=== PATIENT | female | born 1960 | race Caucasian/White ===

== ENCOUNTER 2017-09-15 11:09 | Inpatient (IN) | payer OTHER ==
[2017-09-15] VITALS (28 sets, daily range): BP systolic 52–125; BP diastolic 20–112
[~2017-09-15] VITALS: Ht 160 cm; Wt 167.8 kg
--- NOTE | ~2017-09-15 | HC ---
[facility] [place] [address] CONSULTATION Name: GRETEL GUNNOSWALD Banerjee Room #: 210-P [facility] IN M.R.#: [id number] Admission: 09/15/17 Attend Phys: Simone Martin MD Discharge: Date of : 60 Report #: [id number] THIS REPORT FOR: //name// CC: FAM unknown Simone Martin DATE OF SERVICE: 09/18/2017 PERSONAL PHYSICIAN: Not on staff. CHIEF COMPLAINT: Right leg hematoma, status post evacuation. HISTORY OF PRESENT ILLNESS: This is a 57-year-old morbidly obese white female who resides in a long-term care facility in [place] who states that the nursing staff was attempting to transfer her, she fell and suffered a traumatic hematoma to her right lower extremity. The patient was initially evaluated in the Emergency Department in [facility] and was found to be hypotensive and was transferred to [facility] for further care. The patient was subsequently taken to the operating room after receiving FFP and IV fluids for volume resuscitation. Dr. Harris evacuated the hematoma in the operating room and did a wound closure. We have been asked to follow the patient for the wound while she is still here in the hospital. The patient states that she has a history of chronic lymphedema in her lower extremities and has been followed closely by the lymphedema nurses at her facility as well as she has seen a orthopedic cast specialist at [facility]. The patient denies any other associated wounds at this time. The patient states her left leg is wrapped with lymphedema wrap, which is changed usually once weekly. The patient states that she normally has wraps on her right leg as well prior to the fall. The patient denies any associated traumatic injuries to her body. PAST MEDICAL HISTORY: Significant for CHF, history of COPD, chronic back pain, chronic lower extremity lymphedema, Graves disease with goiter, hypothyroidism. CURRENT MEDICATIONS: Multiple, reviewed the patient's medication list. DRUG ALLERGIES: PENICILLIN. SOCIAL HISTORY: The patient resides in a long-term care facility. The patient smokes 1/2 pack of cigarettes daily for the past 40 years. The patient drinks alcohol socially. FAMILY HISTORY: Not pertinent to current medical condition. REVIEW OF SYSTEMS: CONSTITUTIONAL: The patient denies fevers or chills. NEUROLOGIC: The patient states she was very lightheaded with the acute blood [facility] [address] [place] [address] CONSULTATION Name: MO GUNN Room #: 210-P [facility] IN .R.#: [id number] Admission: 09/15/17 Attend Phys: Simone Martin MD Discharge: Date of : 60 Report #: [id number] loss, but denies any headache, numbness, tingling or weakness in arms or legs. The patient has complaints of mild generalized weakness. EYES: No complaints. ENT: No complaints. CARDIAC: The patient has chronic lower extremity edema consistent with lymphedema, but no chest pain or palpitation. RESPIRATORY: The patient has no shortness of breath, cough or wheezes. GASTROINTESTINAL: The patient denies nausea, vomiting, abdominal pain. GENITOURINARY: The patient denies urgency or frequency. MUSCULOSKELETAL: The patient has pain in her right lower extremity. No other signs of musculoskeletal complaints. SKIN: There is a minimal residual hematoma in the right lower extremity with ranjeet intact and subcutaneous serous fluid. PHYSICAL EXAMINATION: VITAL SIGNS: The patient is afebrile, pulse 83, respiration 14, BP 94/52. GENERAL: This is an alert and oriented x 3 morbidly obese white female who is in no obvious distress, actually eating her lunch. HEENT: Normocephalic, atraumatic. Mucous membranes are moist. Pupils are round. Sclerae are white. NECK: Supple and obese, appears nontender. LUNGS: Clear. HEART: Regular. ABDOMEN: Obese, soft, otherwise nontender. EXTREMITIES: The patient moves all extremities with some decreased range of motion in the bilateral lower extremities secondary to lymphedema. Left lower extremity is wrapped with lymphedema wrap. Distal pulses, sensation and cap refill are all within normal limits. Evaluation of right lower extremity reveals the surgical wound post-evacuation of the hematoma with residual serous fluid in the subcutaneous region. Wound edges are, however, well approximated. The skin itself is very fragile, but there are no actual open wounds at this time. There are no signs of increased erythema, warmth or cellulitis. Distal neurovascular is otherwise intact. NEUROLOGIC: Cranial nerves 2-12 are grossly intact. Motor and sensory intact. LABORATORY DATA: Hemoglobin 6.5, this is down from 7.3 yesterday. BUN 6, creatinine 0.7. Albumin mildly low at 3.3. WOUND CARE COURSE: I spoke at length with the patient and stated at this time given the fact that the wound is actually closed with ranjeet, we will leave these all intact for now. However, my concern is that eventually this friable fragile skin is going to open up and reveal a subcutaneously exposed wound. However, we will continue to watch this very closely while she is here. I will contact the orthopedic cast specialist, Alex House, down at [place] and let him know how we have been treating that, which will be with Xeroform dressings over the entire hematoma site and cover this with ABDs and Kerlix and Myles wrap from [address] [place] [address] CONSULTATION Name: MO GUNN Room #: 210-P [facility] IN M.R.#: [id number] Admission: 09/15/17 Attend Phys: Simone Martin MD Discharge: Date of : 60 Report #: [id number] to knee. We will continue to follow the patient while she is here. The patient has been followed closely by the Internal Medicine group for her anemia. We will also make sure we encourage the patient to maximize her oral protein supplementation for mild protein calorie malnutrition. IMPRESSION: 1. Hematoma, right lower extremity, status post evacuation and primary closure. 2. Severe blood loss anemia. 3. Morbid obesity. 4. Chronic lymphedema, bilateral lower extremities. 5. Protein-calorie malnutrition, mild with albumin 3.3. PLAN: Described at length as above. We will continue to follow the patient while she is here and the plan is to have the patient get back to her long-term care facility in [place] with a orthopedic cast specialist to follow down there. By: 1335 13 Antony Watson MD /nt
--- NOTE | ~2017-09-15 | O ---
[facility] [place] [address] OPERATIVE REPORT Name: MO GUNN Room #: 242-P [facility] IN M.R.#: [id number] Admission: 09/15/17 Attend Phys: Siomne Martin MD Discharge: Date of : 60 Report #: [id number] THIS REPORT FOR: //name// CC: FAM unknown Simone Martin DATE OF SERVICE: 09/16/2017 PREOPERATIVE DIAGNOSIS: Right leg hematoma with skin tear. POSTOPERATIVE DIAGNOSIS: Right leg hematoma with skin tear. PROCEDURE: Right leg hematoma evacuation with irrigation and debridement and wound closure. SURGEON: Yinka Harris MD SECURITY INSTALLATION SALES TECHNICIAN: Brenda Rivera. ANESTHESIA: General. ESTIMATED BLOOD LOSS: 10 mL. DRAINS: No drains. TOURNIQUET TIME: 30 minutes. COMPLICATIONS: There were no complications. DESCRIPTION OF THE PROCEDURE: The patient was brought to the operating room where she was placed under general anesthesia. Once under adequate general anesthesia, her right lower extremity was prepped and draped in a sterile manner. The extremity was elevated and a tourniquet placed to 300 mmHg. The patient's wound was then exposed and any hematoma was evacuated from the wound manually with my fingers as well as with suction. Pulsatile lavage was then placed on low setting and irrigation of the wound was achieved with copious amounts of normal saline solution. Once completed, the wound was closed with 2-0 nylon suture and ranjeet for the skin. The wound was dressed with Xeroform, 4 x 4s, and sterile soft compressive dressing was placed. Tourniquet was let down at approximately 30 minutes. Toes were pink and warm with good capillary refill. There were no complications from the procedure. The patient tolerated the procedure well and was taken to the recovery room without incident. By: [id number] Yinka Harris MD /nt
[2017-09-15 12:42] LABS: PROTIME 20.7 Seconds (9.3-11.4)
[2017-09-15 12:42] LABS: ABSOLUTE NEUTROPHILS 11.2 thou/uL (1.4-8.2); BASOPHILS 0.4 % (0.0-2.0); EOSINOPHILS 1.3 % (0.0-3.0); HEMOGLOBIN 9.3 gm/dL (12.0-15.0); LYMPHOCYTES 12.9 % (24.0-44.0); MCH 31.2 pg (26.0-34.0); MCHC 33.3 g/dL (28.0-37.0); MCV 93.7 fL (80.0-100.0); PLATELET COUNT 271 thou/uL (150-400); POLYS 75.4 % (36.0-66.0); RBC 2.99 mil/uL (4.20-5.00); RDW 15.6 % (10.5-14.5); WBC 14.9 thou/uL (4.0-11.0)
[2017-09-15 14:50] LABS: HEMOGLOBIN 8.8 gm/dL (12.0-15.0); MCH 31.5 pg (26.0-34.0); MCHC 33.6 g/dL (28.0-37.0); MCV 93.7 fL (80.0-100.0); RBC 2.78 mil/uL (4.20-5.00); WBC 10.9 thou/uL (4.0-11.0)
[2017-09-15 21:22] LABS: MCH 31.1 pg (26.0-34.0); MCHC 34.6 g/dL (28.0-37.0); MCV 89.8 fL (80.0-100.0); RBC 2.89 mil/uL (4.20-5.00); RDW 16.1 % (10.5-14.5); WBC 8.1 thou/uL (4.0-11.0)
[2017-09-15 21:53] LABS: INR 1.2
[2017-09-16 02:16] VITALS: BP 82/41
[2017-09-16] MEDS ORDERED: LIPITOR 20 MG T20 M1 PO ×2 (02:40→02:49)
[2017-09-16] MEDS ORDERED: WELLBUTRIN SR100 MG PO (02:51)
[2017-09-16] MEDS ORDERED: COREG6.25 MG PO (02:52)
[2017-09-16] MEDS ORDERED: CARVEDILOL3.125 MG PO (02:54)
[2017-09-16] MEDS ORDERED: CELEXA10 MG PO (02:55)
[2017-09-16] MEDS ORDERED: CELEXA20 MG PO (02:57)
[2017-09-16] MEDS ORDERED: CLONAZEPAM 1 MG1 M1 PO (02:57)
[2017-09-16] MEDS ORDERED: PEPCID20 MG PO (02:58)
[2017-09-16] MEDS ORDERED: IRON325 PO (02:59)
[2017-09-16] MEDS ORDERED: LASIX 40 MG TAB40 M2 PO (03:00)
[2017-09-16] MEDS ORDERED: GABAPENTIN 100100 MG PO (03:01)
[2017-09-16] MEDS ORDERED: HALOPERIDOL 1 MG1 MG PO (03:01)
[2017-09-16] MEDS ORDERED: LEVSIN0.125 MG PO (03:03)
[2017-09-16] MEDS ORDERED: KEPPRA750 MG PO (03:04)
[2017-09-16] MEDS ORDERED: SYNTHROID175 MCG PO (03:05)
[2017-09-16] MEDS ORDERED: MELATONIN5 M1 PO (03:06)
[2017-09-16] MEDS ORDERED: MIRALAX17 GM PO (03:08)
[2017-09-16] MEDS ORDERED: CENTRUM SILVER1 EAC4 PO (03:09)
[2017-09-16] MEDS ORDERED: PROTONIX40 M1 PO (03:09)
[2017-09-16] MEDS ORDERED: POTASSIUM20 PO (03:10)
[2017-09-16] MEDS ORDERED: SENEXON-S TABL1 EACH PO (03:11)
[2017-09-16 05:31] LABS: ABSOLUTE NEUTROPHILS 4.8 thou/uL (1.4-8.2); BASOPHILS 0.5 % (0.0-2.0); EOSINOPHILS 1.9 % (0.0-3.0); HEMATOCRIT 22.2 % (37.0-47.0); HEMOGLOBIN 7.7 gm/dL (12.0-15.0); LYMPHOCYTES 23.5 % (24.0-44.0); MCH 31.2 pg (26.0-34.0); MCHC 34.6 g/dL (28.0-37.0); MCV 90.2 fL (80.0-100.0); PLATELET COUNT 155 thou/uL (150-400); POLYS 62.1 % (36.0-66.0); RBC 2.46 mil/uL (4.20-5.00); RDW 16.2 % (10.5-14.5); WBC 7.8 thou/uL (4.0-11.0)
[2017-09-16 12:18] LABS: HEMATOCRIT 20.9 % (37.0-47.0); HEMOGLOBIN 7.2 gm/dL (12.0-15.0); MCH 31.3 pg (26.0-34.0); MCHC 34.6 g/dL (28.0-37.0); MCV 90.6 fL (80.0-100.0); RBC 2.31 mil/uL (4.20-5.00); RDW 16.1 % (10.5-14.5); WBC 8.7 thou/uL (4.0-11.0)
[2017-09-16 14:23] VITALS: BP 99/38
[2017-09-16 17:57] LABS: HEMOGLOBIN 7.1 gm/dL (12.0-15.0)
[2017-09-16 18:05] LABS: CALCIUM 7.9 mg/dL (8.5-10.1); CREATININE 0.7 mg/dL (0.6-1.0); POTASSIUM 3.5 mmol/L (3.5-5.1)
[2017-09-16 19:55] LABS: URINE BILIRUBIN NEGATIVE (Negative); URINE BLOOD 1+ (Negative); URINE CLARITY CLEAR; URINE COLOR YELLOW; URINE GLUCOSE-RANDOM* NEGATIVE (Negative); URINE KETONES NEGATIVE (Negative); URINE PROTEIN (DIPSTICK) NEGATIVE (Negative); URINE UROBILINOGEN 0.2 E.U./dl (0.2-1.0)
[2017-09-16 19:56] LABS: URINE LEUKOCYTES-REFLEX 3+ (Negative); URINE NITRITE-REFLEX POSITIVE (Negative)
[2017-09-16 20:08] LABS: CASTS None Seen /LPF (None Seen); CRYSTALS None Seen /LPF (None Seen); MUCUS 4-6 Moderate strn/LPF (None Seen); SQUAMOUS 4-10 Moderate /LPF (0-3); URINE WBC-REFLEX >25 Many /HPF (0-5)
[2017-09-16 20:15] VITALS: BP 84/21; BP 98/44
[2017-09-16 23:35] LABS: HEMATOCRIT 21.5 % (37.0-47.0); HEMOGLOBIN 7.4 gm/dL (12.0-15.0)
[2017-09-17] VITALS (19 sets, daily range): BP systolic 86–126; BP diastolic 41–51
[2017-09-17 04:12] LABS: ABSOLUTE NEUTROPHILS 6.8 thou/uL (1.4-8.2); BASOPHILS 0.4 % (0.0-2.0); EOSINOPHILS 0.5 % (0.0-3.0); HEMATOCRIT 20.8 % (37.0-47.0); HEMOGLOBIN 7.3 gm/dL (12.0-15.0); LYMPHOCYTES 13.2 % (24.0-44.0); MCH 31.3 pg (26.0-34.0); MCHC 34.9 g/dL (28.0-37.0); MCV 89.6 fL (80.0-100.0); MONOCYTES 11.2 % (1.0-8.0); PLATELET COUNT 155 thou/uL (150-400); POLYS 74.7 % (36.0-66.0); RBC 2.32 mil/uL (4.20-5.00); RDW 16.1 % (10.5-14.5); WBC 9.2 thou/uL (4.0-11.0)
[2017-09-17 04:20] LABS: CALCIUM 8.5 mg/dL (8.5-10.1); CREATININE 0.7 mg/dL (0.6-1.0); MAGNESIUM 2.1 mg/dL (1.8-2.4); POTASSIUM 3.1 mmol/L (3.5-5.1)
[2017-09-18] VITALS (21 sets, daily range): BP systolic 83–111; BP diastolic 39–63
[2017-09-18 06:05] LABS: HEMOGLOBIN 6.5 gm/dL (12.0-15.0)
[2017-09-19 04:46] VITALS: BP 117/49
[2017-09-19 04:59] LABS: HEMATOCRIT 22.8 % (37.0-47.0); HEMOGLOBIN 7.5 gm/dL (12.0-15.0)
[2017-09-19 08:00] VITALS: BP 102/39
[2017-09-19 11:00] VITALS: BP 103/55
[2017-09-19 16:00] VITALS: BP 110/66
[2017-09-19 19:55] VITALS: BP 122/52
[2017-09-20 04:36] VITALS: BP 116/42
[2017-09-20 06:10] LABS: HEMATOCRIT 22.5 % (37.0-47.0); HEMOGLOBIN 7.6 gm/dL (12.0-15.0); MCH 31.7 pg (26.0-34.0); MCHC 33.8 g/dL (28.0-37.0); MCV 93.8 fL (80.0-100.0); RBC 2.4 mil/uL (4.20-5.00); RDW 15.5 % (10.5-14.5); WBC 6.4 thou/uL (4.0-11.0)
[2017-09-20 06:25] LABS: ANION GAP < 0 mmol/L (7-16); BUN 5 mg/dL (7-18); CALCIUM 8.6 mg/dL (8.5-10.1); CHLORIDE 106 mmol/L (98-107); CO2 35 mmol/L (21-32); CREATININE 0.8 mg/dL (0.6-1.0); GLUCOSE 107 mg/dL (74-106); SODIUM 140 mmol/L (136-145)
[2017-09-20 09:04] VITALS: BP 99/45
[2017-09-20 09:28] LABS: PROTIME 9.6 Seconds (9.3-11.4)
[2017-09-20 12:37] VITALS: BP 99/42
[2017-09-20 16:07] VITALS: BP 104/51
[2017-09-20 19:45] VITALS: BP 117/45
[2017-09-21 04:25] VITALS: BP 116/44
[2017-09-21 05:27] LABS: PROTIME 9.7 Seconds (9.3-11.4)
[2017-09-21 05:29] LABS: HEMATOCRIT 23.3 % (37.0-47.0); HEMOGLOBIN 7.9 gm/dL (12.0-15.0); MCH 31.7 pg (26.0-34.0); MCHC 33.9 g/dL (28.0-37.0); MCV 93.4 fL (80.0-100.0); RBC 2.49 mil/uL (4.20-5.00); RDW 15.9 % (10.5-14.5); WBC 8.4 thou/uL (4.0-11.0)
[2017-09-21 05:30] LABS: SGOT 13 U/L (15-37); SGPT 13 U/L (30-65)
[2017-09-21 06:09] LABS: CALCIUM 8.6 mg/dL (8.5-10.1); CREATININE 0.7 mg/dL (0.6-1.0); MAGNESIUM 1.9 mg/dL (1.8-2.4); POTASSIUM 4.2 mmol/L (3.5-5.1)
[2017-09-21 07:33] VITALS: BP 106/48
[2017-09-21 12:08] VITALS: BP 107/52
[2017-09-21 15:52] VITALS: BP 107/58
[2017-09-21 20:09] VITALS: BP 110/58
[2017-09-22 03:46] LABS: PROTIME 10.2 Seconds (9.3-11.4)
[2017-09-22 03:55] LABS: CALCIUM 8.6 mg/dL (8.5-10.1); CREATININE 0.7 mg/dL (0.6-1.0); MAGNESIUM 1.9 mg/dL (1.8-2.4)
[2017-09-22 04:06] LABS: HEMATOCRIT 24.4 % (37.0-47.0); HEMOGLOBIN 7.9 gm/dL (12.0-15.0); MCHC 32.6 g/dL (28.0-37.0); MCV 95.2 fL (80.0-100.0); RBC 2.56 mil/uL (4.20-5.00); RDW 16.1 % (10.5-14.5); WBC 8.3 thou/uL (4.0-11.0)
[2017-09-22 05:13] VITALS: BP 123/60
[2017-09-22 07:38] VITALS: BP 115/60
[2017-09-22 11:42] VITALS: BP 114/53
[2017-09-22] MEDS ORDERED: ADVAIR 250-501 EACH INH ×2 (12:40→13:37)
[2017-09-22] MEDS ORDERED: COUMADIN 3 MG TA3 M1 PO ×2 (12:41→13:53)
[2017-09-22] MEDS ORDERED: MORPHINE SULFAT60 M1 PO (12:51)
[2017-09-22] MEDS ORDERED: ROXICODONE5 MG PO (13:15)
[2017-09-22] MEDS ORDERED: SPIRIVA18 MCG INH (13:16)
[2017-09-22] MEDS ORDERED: IRON325 PO (13:53)
[2017-09-22 16:01] VITALS: BP 124/44
== END 2017-09-22 17:43 | DRG 604 ==
LOC: ICU 11:09 → 4E 11:09 → ICU 11:46 → 2N 09-18 11:53
PROVIDERS: Internal Medicine; Nurse Practitioner; Nurse Practitioner Family; Orthopaedic Surgery Foot and Ankle Surgery
PROC: 30233L1 Transfusion of Nonautologous Fresh Plasma into Peripheral Vein, Percutaneous Approach (ICD-10-PCS; principal; 2017-09-15)
PROC: 30233N1 Transfusion of Nonautologous Red Blood Cells into Peripheral Vein, Percutaneous Approach (ICD-10-PCS; 2017-09-15)
PROC: 30233K1 Transfusion of Nonautologous Frozen Plasma into Peripheral Vein, Percutaneous Approach (ICD-10-PCS; 2017-09-15)
PROC: 0JCN0ZZ Extirpation of Matter from Right Lower Leg Subcutaneous Tissue and Fascia, Open Approach (ICD-10-PCS; 2017-09-15)
DX: S81.811A Laceration without foreign body, right lower leg, initial encounter (principal); R57.1 Hypovolemic shock; L03.116 Cellulitis of left lower limb; L03.115 Cellulitis of right lower limb; D62 Acute posthemorrhagic anemia; E44.1 Mild protein-calorie malnutrition; D68.9 Coagulation defect, unspecified; J96.10 Chronic respiratory failure, unspecified whether with hypoxia or hypercapnia; N39.0 Urinary tract infection, site not specified; Z68.44 Body mass index [BMI] 60.0-69.9, adult; E66.01 Morbid (severe) obesity due to excess calories; J44.9 Chronic obstructive pulmonary disease, unspecified; I50.9 Heart failure, unspecified; M54.9 Dorsalgia, unspecified; G89.29 Other chronic pain; M19.90 Unspecified osteoarthritis, unspecified site; E03.9 Hypothyroidism, unspecified; F41.8 Other specified anxiety disorders; F17.210 Nicotine dependence, cigarettes, uncomplicated; W06.XXXA Fall from bed, initial encounter; I95.9 Hypotension, unspecified; I48.2 Chronic atrial fibrillation; I89.0 Lymphedema, not elsewhere classified; E78.5 Hyperlipidemia, unspecified; K21.9 Gastro-esophageal reflux disease without esophagitis; I48.91 Unspecified atrial fibrillation; I11.0 Hypertensive heart disease with heart failure; E11.9 Type 2 diabetes mellitus without complications; Z86.718 Personal history of other venous thrombosis and embolism; Z79.899 Other long term (current) drug therapy; Z88.0 Allergy status to penicillin; Y93.89 Activity, other specified; Y92.89 Other specified places as the place of occurrence of the external cause; Y99.8 Other external cause status; Z79.01 Long term (current) use of anticoagulants; Z99.81 Dependence on supplemental oxygen
CPT/HCPCS: 10078; 10081; 50010; 50101; 62110; 62900; 70005

== ENCOUNTER 2017-10-10 13:32 | Inpatient (IN) | payer OTHER ==
[~2017-10-10] VITALS: Ht 160 cm; Wt 169.2 kg
--- NOTE | ~2017-10-10 | HC ---
[facility] [place] [address] CONSULTATION Name: MO GUNN Room #: 429-P [facility] IN ..#: [id number] Admission: 10/10/17 Attend Phys: Pedro Jacob Discharge: Date of : 60 Report #: [id number] THIS REPORT FOR: //name// CC: FAM unknown Pedro Jacob DATE OF SERVICE: 10/11/2017 INFECTIOUS DISEASE CONSULTATION ATTENDING PHYSICIAN: Dr. Jacob. REASON FOR EVALUATION: Subcutaneous hematoma complicated by infection due to multiple-resistant organism associated cellulitis. HISTORY OF PRESENT ILLNESS: Chart reviewed, the patient examined. This is a 57-year-old morbidly obese woman who is disabled, long-term care facility, has a traumatic injury to her right leg. She developed hematoma and did experience some hemodynamic instability. She was transferred and underwent surgical evacuation. She was discharged on 09/22/2017. She was referred back due to wound dehiscence with removal of the staple sutures, increasing inflammation and pain associated with it. She had culture which had growth of Acinetobacter that was multiple resistant, including extended-spectrum beta-lactamase production as well as some Escherichia coli. She had been undergoing wound care with Dr. Watson. She was referred back. At this point, she is lucid, does admit to significant pain. Denies significant pulmonary or gastrointestinal related complaints. ALLERGIES: PENICILLIN. CURRENT MEDICATIONS: Include famotidine, potassium chloride, citalopram, bupropion, atorvastatin, pantoprazole, levothyroxine, oxycodone, ferrous sulfate, melatonin, levetiracetam, gabapentin, warfarin, albuterol, clonazepam, budesonide and meropenem 500 IV q.h8. PAST MEDICAL HISTORY: In addition to the morbid obesity, she has chronic lymphedema of lower extremities, history of DVT, chronic atrial fibrillation, COPD, cardiomyopathy with history of congestive heart failure, chronic pain syndrome involving her back, severe osteoarthritis, Graves disease, hypothyroidism, anxiety, depression, diabetes mellitus type 2 and restless legs. SOCIAL HISTORY: Smokes 4 cigarettes a day. No ethanol. FAMILY HISTORY: Noncontributory. REVIEW OF SYSTEMS: As above. [facility] [address] [place] [address] CONSULTATION Name: MO GUNN Room #: 429-P [facility] IN [facility].#: [id number] Admission: 10/10/17 Attend Phys: Pedro Jacob Discharge: Date of : 60 Report #: [id number] PHYSICAL EXAMINATION: GENERAL: She appears chronically ill. She is pleasant, cooperative. VITAL SIGNS: Temperature 98.8, pulse 90, respirations 20 and blood pressure 100/50. SKIN: Warm. No rashes. HEENT: Unremarkable. NECK: Supple. LUNGS: Diminished breath sounds. HEART: Distant, regular. She actually has a soft systolic murmur. ABDOMEN: Soft, obese. EXTREMITIES: Right lower extremity has a dressing in place below the knee that was not disturbed. I did review the photograph from admission. There is marked fat necrosis. There is very little granulation tissue. There is marked degree of inflammation. GENITOURINARY: Deferred. RECTAL: Deferred. LABORATORY DATA: Culture from here is pending. Gram stain shows gram-positive cocci. CBC: White count of 5.8, H and H 9.1 and 28.3 and platelets of 278,000. Electrolytes: Sodium 143, potassium 3.7, chloride 103, bicarbonate 41, BUN and creatinine 9 and 0.9, glucose of 103. Estimated GFR of 65. Urinalysis, 6-15 white cells, greater than 30 bacteria. ASSESSMENT AND PLAN: Infected hematoma post-evacuation, now with multiple-resistant gram negative. We will continue the current approach with meropenem. Wound care per Dr. Watson. Efforts to diminished the overall edema apparently with elevation and compression. Additionally, it looks like perhaps she did have urinary tract infection. Merrem should give us good coverage for that. We will await those results. We will add incentive spirometry and be concerned about nosocomial related infectious complications including pneumonitis. <ELECTRONICALLY SIGNED> By: Baltazar Yusuf MD 10/12/17 0750 [id number] [id number] Baltazar Yusuf MD /nt
--- NOTE | ~2017-10-10 | HC ---
[facility] [place] [address] CONSULTATION Name: MO GUNN Room #: 429-P [facility] IN M.R.#: [id number] Admission: 10/10/17 Attend Phys: Pedro Jacob Discharge: Date of : 60 Report #: [id number] THIS REPORT FOR: //name// CC: FAM unknown Pedro Jacob DATE OF SERVICE: 10/10/2017 HISTORY OF PRESENT ILLNESS: This is a 57-year-old female patient who is familiar to the wound care service, having had a recent hospitalization about a month ago. She, at that time had developed a right leg hematoma. It was surgically evacuated and she was managed with several procedures and a subsequent partial closure. She has had an ongoing open ulceration of the open wound of the right lower leg. She lives in an extended care facility and they felt that it was becoming increasingly infected. She has had cultures reportedly growing acinetobacter and she is now here for further evaluation and treatment. The patient states that her pain in her leg is a 10/10. PAST MEDICAL HISTORY: The patient's past medical history is once again positive for history of a fall with traumatic hematoma to the right lower extremity, exacerbated by the Coumadin for previous DVT. Dr. Harris evacuated the hematoma and did a subsequent wound closure. The overlying soft tissue has sloughed resulting in the open ulceration. The patient also has a past history for congestive heart failure, COPD, chronic back pain, morbid obesity, graves disease. ALLERGIES: PENICILLIN. SOCIAL HISTORY: The patient lives in a long-term care facility. Smokes half pack of cigarettes daily for the last 40 years. Admits some occasional alcohol consumption. FAMILY HISTORY: Noncontributory. REVIEW OF SYSTEMS: CONSTITUTIONAL: The patient denies fever, chills or weight loss. NEUROLOGICAL: The patient denies focal weakness. ENT: The patient denies earache, nasal drainage or sore throat. CARDIOVASCULAR: The patient denies chest pain, palpitations or diaphoresis. PULMONARY: The patient denies cough or shortness of breath. GASTROINTESTINAL: The patient denies nausea, vomiting, diarrhea, or abdominal pain. ORTHOPEDIC: The patient complains of significant pain 10/10 in her right lower extremity. Other systems in a 14-point review of systems are negative. PHYSICAL EXAMINATION: [address] [address] CONSULTATION Name: MO GUNN Room #: 429-P [facility] IN ..#: [id number] Admission: 10/10/17 Attend Phys: Pedro Jacob Discharge: Date of : 60 Report #: [id number] VITAL SIGNS: At this time have not yet been documented. She has just recently been admitted. GENERAL: This is a chronically ill-appearing female patient who is morbidly obese, in minimal distress. HEENT: Head normocephalic. Nose and throat are clear. NECK: Supple. LUNGS: Diminished. HEART: Regular rhythm. ABDOMEN: Obese, nontender. EXTREMITIES: Lower extremities demonstrate palpable distal pulses. She has a very large ulceration/traumatic wound to the right medial lower leg, is approximately 50% granulation tissue, 50% fibrinous material. There is surrounding erythema consistent with some degree of cellulitis. NEUROLOGIC: The patient is alert and oriented. LABORATORY STUDIES: Pending at this time. CLINICAL IMPRESSION: 1. Traumatic wound to the right lower leg, status post evacuation of hematoma. 2. Cellulitis, right lower extremity. 3. Morbid obesity. RECOMMENDATIONS: At this point in time, we will recommend topical Silvadene and morphine cream to help control pain and deal with an underlying infection. She will need Kerlix and Myles wraps for compression, elevation of the leg when possible, aggressive nutritional support. We will review laboratory data and vital signs upon their completion. We will follow her closely while here in the hospital. I appreciate being asked to see her in consultation. Additionally, culture and sensitivity will be obtained at bedside today. <ELECTRONICALLY SIGNED> By: Adolph Michelle MD 10/13/17 0759 [id number] [id number] Adolph Michelle MD /nt
[~2017-10-10 13:32] MED LIST: ADVAIR 250-501 EACH INH; CARVEDILOL3.125 MG PO; CELEXA10 MG PO; CELEXA20 MG PO; CENTRUM SILVER1 EAC4 PO; CLONAZEPAM 1 MG1 M1 PO; COREG6.25 MG PO; COUMADIN 3 MG TA3 M1 PO; GABAPENTIN 100100 MG PO; HALOPERIDOL 1 MG1 MG PO; IRON325 PO; KEPPRA750 MG PO; LASIX 40 MG TAB40 M2 PO; LEVSIN0.125 MG PO; LIPITOR 20 MG T20 M1 PO; MELATONIN5 M1 PO; MIRALAX17 GM PO; MORPHINE SULFAT60 M1 PO; PEPCID20 MG PO; POTASSIUM20 PO; PROTONIX40 M1 PO; ROXICODONE5 MG PO; SENEXON-S TABL1 EACH PO; SPIRIVA18 MCG INH; SYNTHROID175 MCG PO; WELLBUTRIN SR100 MG PO
[2017-10-10 15:51] VITALS: BP 101/37
[2017-10-10 17:39] LABS: INR 1.7; PROTIME 17.2 Seconds (9.3-11.4)
[2017-10-10] MEDS ORDERED: COUMADIN 3 MG TA3 M1 PO (18:40)
[2017-10-10 18:50] LABS: URINE BILIRUBIN NEGATIVE (Negative); URINE BLOOD 2+ (Negative); URINE COLOR YELLOW; URINE GLUCOSE-RANDOM* NEGATIVE (Negative); URINE KETONES NEGATIVE (Negative); URINE LEUKOCYTES-REFLEX 2+ (Negative); URINE NITRITE-REFLEX POSITIVE (Negative); URINE PROTEIN (DIPSTICK) NEGATIVE (Negative); URINE UROBILINOGEN 0.2 E.U./dl (0.2-1.0)
[2017-10-10 18:51] LABS: URINE CLARITY HAZY
[2017-10-10 19:01] LABS: AMORPHOUS PHOSPHATES Many /LPF (None Seen); BACTERIA-REFLEX >30 Many /HPF (None Seen); CASTS None Seen /LPF (None Seen); SQUAMOUS 0-3 Few /LPF (0-3); URINE RBC 3-10 Few /HPF (0-2); URINE WBC-REFLEX 6-15 Few /HPF (0-5)
[2017-10-10 20:00] VITALS: BP 116/65
[2017-10-11 04:00] VITALS: BP 100/50
[2017-10-11 05:40] LABS: BASOPHILS 0.4 % (0.0-2.0); EOSINOPHILS 2.8 % (0.0-3.0); HEMATOCRIT 28.3 % (37.0-47.0); HEMOGLOBIN 9.1 gm/dL (12.0-15.0); MCH 29.8 pg (26.0-34.0); MCHC 32.2 g/dL (28.0-37.0); MCV 92.5 fL (80.0-100.0); MONOCYTES 10.6 % (1.0-8.0); PLATELET COUNT 278 thou/uL (150-400); POLYS 68.2 % (36.0-66.0); RBC 3.06 mil/uL (4.20-5.00); RDW 16.6 % (10.5-14.5); WBC 5.8 thou/uL (4.0-11.0)
[2017-10-11 05:45] LABS: ANION GAP < 0 mmol/L (7-16); BUN 9 mg/dL (7-18); CALCIUM 8.3 mg/dL (8.5-10.1); CHLORIDE 103 mmol/L (98-107); CO2 41 mmol/L (21-32); CREATININE 0.9 mg/dL (0.6-1.0); GLUCOSE 103 mg/dL (74-106); MAGNESIUM 1.5 mg/dL (1.8-2.4); POTASSIUM 3.7 mmol/L (3.5-5.1); SODIUM 143 mmol/L (136-145)
[2017-10-11 08:00] VITALS: BP 84/42
[2017-10-11 08:34] LABS: INR 1.8; PROTIME 17.7 Seconds (9.3-11.4)
[2017-10-11 16:50] VITALS: BP 91/50
[2017-10-11 20:00] VITALS: BP 101/47
[2017-10-12 04:27] VITALS: BP 97/47
[2017-10-12 07:55] VITALS: BP 118/49
[2017-10-12 10:41] LABS: INR 1.8; PROTIME 18.2 Seconds (9.3-11.4)
[2017-10-12 16:00] VITALS: BP 112/52
[2017-10-12 20:00] VITALS: BP 125/57
[2017-10-13 04:30] VITALS: BP 96/42
[2017-10-13 06:25] LABS: INR 1.8; PROTIME 18.7 Seconds (9.3-11.4)
[2017-10-13 08:00] VITALS: BP 101/40
[2017-10-13] MEDS ORDERED: MEROPENEM500 MG IV ×2 (10:16→15:19)
[2017-10-13] MEDS ORDERED: VANCO1GM IV ×2 (10:17→15:19)
[2017-10-13] MEDS ORDERED: COUMADIN 2 MG TA2 M1 PO (10:18)
[2017-10-13] MEDS ORDERED: MS CONTIN 30 MG30 M1 PO (10:18)
[2017-10-13] MEDS ORDERED: PERCOCET PO (10:18)
[2017-10-13] MEDS ORDERED: NOVOLOG100 UNIT/1 SUBQ (10:23)
== END 2017-10-13 18:33 | DRG 699 ==
LOC: 4E 13:32
PROVIDERS: Nurse Practitioner
PROC: 05HD33Z Insertion of Infusion Device into Right Cephalic Vein, Percutaneous Approach (ICD-10-PCS; principal; 2017-10-13)
DX: T83.511A Infection and inflammatory reaction due to indwelling urethral catheter, initial encounter (principal); L03.115 Cellulitis of right lower limb; Z68.44 Body mass index [BMI] 60.0-69.9, adult; I42.9 Cardiomyopathy, unspecified; L76.32 Postprocedural hematoma of skin and subcutaneous tissue following other procedure; Y83.8 Other surgical procedures as the cause of abnormal reaction of the patient, or of later complication, without mention of misadventure at the time of the procedure; Y92.89 Other specified places as the place of occurrence of the external cause; E66.01 Morbid (severe) obesity due to excess calories; I50.9 Heart failure, unspecified; I48.2 Chronic atrial fibrillation; E87.6 Hypokalemia; E83.42 Hypomagnesemia; N30.90 Cystitis, unspecified without hematuria; Z16.12 Extended spectrum beta lactamase (ESBL) resistance; Z16.20 Resistance to unspecified antibiotic; E78.5 Hyperlipidemia, unspecified; G89.29 Other chronic pain; M19.90 Unspecified osteoarthritis, unspecified site; F32.9 Major depressive disorder, single episode, unspecified; K21.9 Gastro-esophageal reflux disease without esophagitis; F41.9 Anxiety disorder, unspecified; B95.62 Methicillin resistant Staphylococcus aureus infection as the cause of diseases classified elsewhere; B96.20 Unspecified Escherichia coli [E. coli] as the cause of diseases classified elsewhere; G25.81 Restless legs syndrome; E11.9 Type 2 diabetes mellitus without complications; E03.9 Hypothyroidism, unspecified; J44.9 Chronic obstructive pulmonary disease, unspecified; F17.210 Nicotine dependence, cigarettes, uncomplicated; Z86.718 Personal history of other venous thrombosis and embolism; Z79.01 Long term (current) use of anticoagulants; Z79.899 Other long term (current) drug therapy; Z88.0 Allergy status to penicillin
CPT/HCPCS: 10183; 27000

== ENCOUNTER 2018-07-17 18:55 | Inpatient (IN) | payer OTHER ==
[~2018-07-17] VITALS: Ht 160 cm; Wt 149.6 kg
[~2018-07-17 18:55] MED LIST changes: +COUMADIN 2 MG TA2 M1 PO; +MEROPENEM500 MG IV; +MS CONTIN 30 MG30 M1 PO; +NOVOLOG100 UNIT/1 SUBQ; +PERCOCET PO; +VANCO1GM IV
[2018-07-17 19:42] VITALS: BP 133/56
[2018-07-17] MEDS ORDERED: LASIX 40 MG TAB40 M2 PO (23:38)
[2018-07-17] MEDS ORDERED: MS CONTIN 60 MG60 M1 PO (23:42)
[2018-07-17 23:43] VITALS: BP 105/54
[2018-07-17] MEDS ORDERED: OXYCODONE HCL10 MG PO (23:44)
[2018-07-17] MEDS ORDERED: VENTOLIN HFA 1818 GM INH (23:48)
[2018-07-17] MEDS ORDERED: SPIRIVA INH (23:49)
[2018-07-18] MEDS ORDERED: LIPITOR 20 MG T20 M1 PO
[2018-07-18] MEDS ORDERED: DOXYCYCLINE 10100 MG PO (00:01)
[2018-07-18] MEDS ORDERED: ULTRAM 50MG TAB50 MG PO (00:02)
[2018-07-18] MEDS ORDERED: XARELTO20 MG PO (00:03)
[2018-07-18 03:25] LABS: BE(vivo) 9.7 mmol/L (-2 to +3); HCO3 36.7 mmol/L (22.0-26.0); PCO2 57.5 mmHg (35.0-45.0); PO2 76.1 mmHg (80.0-100.0); pH 7.423 (7.360-7.450); sO2 95.2 % (92.0-98.0)
[2018-07-18 04:52] VITALS: BP 134/64
[2018-07-18 05:43] LABS: HEMATOCRIT 49.2 % (37.0-47.0); HEMOGLOBIN 15.9 gm/dL (12.0-15.0); MCH 30.8 pg (26.0-34.0); MCHC 32.3 g/dL (28.0-37.0); MCV 95.4 fL (80.0-100.0); RBC 5.15 mil/uL (4.20-5.00); RDW 16.6 % (10.5-14.5); WBC 11.2 thou/uL (4.0-11.0)
[2018-07-18 06:04] LABS: CALCIUM 9.2 mg/dL (8.5-10.1); CREATININE 0.9 mg/dL (0.6-1.0)
[2018-07-18 06:17] LABS: POTASSIUM 2.8 mmol/L (3.5-5.1)
[2018-07-18 07:46] VITALS: BP 114/51
[2018-07-18 11:54] VITALS: BP 126/55
[2018-07-18 17:10] VITALS: BP 130/59
[2018-07-18 20:17] VITALS: BP 143/56
[2018-07-19 05:40] LABS: ABSOLUTE NEUTROPHILS 6.5 thou/uL (1.4-8.2); BASOPHILS 0.5 % (0.0-2.0); EOSINOPHILS 0.2 % (0.0-3.0); HEMATOCRIT 44.8 % (37.0-47.0); HEMOGLOBIN 14.5 gm/dL (12.0-15.0); LYMPHOCYTES 9.7 % (24.0-44.0); MCH 31.2 pg (26.0-34.0); MCHC 32.4 g/dL (28.0-37.0); MCV 96.3 fL (80.0-100.0); MONOCYTES 7.3 % (1.0-8.0); PLATELET COUNT 195 thou/uL (150-400); POLYS 82.3 % (36.0-66.0); RBC 4.65 mil/uL (4.20-5.00); RDW 16.2 % (10.5-14.5); WBC 7.9 thou/uL (4.0-11.0)
[2018-07-19 05:56] LABS: ALBUMIN 2.9 g/dL (3.4-5.0); CALCIUM 9.2 mg/dL (8.5-10.1); CREATININE 0.7 mg/dL (0.6-1.0); MAGNESIUM 1.9 mg/dL (1.8-2.4); TOTAL PROTEIN 6.9 g/dL (6.4-8.2)
[2018-07-19 06:06] VITALS: BP 150/42
[2018-07-19 06:16] LABS: POTASSIUM 3.9 mmol/L (3.5-5.1)
--- NOTE | 2018-07-19 06:17 | NUR ---
PT RESTED WELL, REFUSED TO BE STUCK FOR ABG'S THIS AM. PT ON 6L NASAL CANNULA. DROWSY BUT EASILY AROUSABLE, PAIN MANAGED WITH SCHEDULED PAIN MED, PT REQUESTED CLONAZEPAM AT BEDTIME. SILVADENE MORPHINE APPLIED TO RIGHT LEG, REPOSTIONING DONE PT ALLOWED, PT PREFERS TO BE SEMI FOWLERS, EDUCATION ON SKIN INTERGRITY PROVIDED.
[2018-07-19 06:52] LABS: ANISOCYTOSIS 1+; LARGE PLATELETS OCCASIONAL
[2018-07-19 08:14] VITALS: BP 125/47
--- NOTE | 2018-07-19 12:14 | HC ---
[facility] [place] [address] CONSULTATION Name: SYEDMO E Room #: 207-P [facility] IN M.R.#: [id number] Admission: 07/17/18 ������������������ Attend Phys: Pedro Jacob Discharge: ������������������ Date of : 60 Report #: [id number] THIS REPORT FOR: //name// CC: FAM unknown Pedro Jacob DATE OF SERVICE: 07/18/2018 REASON FOR CONSULTATION: Wound of right lower extremity. HISTORY OF PRESENT ILLNESS: The patient is a morbidly obese 58-year-old woman with diabetes mellitus, lymphedema, and history of deep vein thrombosis, has been treated in the past by Dr. Antony Watson for wounds of the lower extremities. For medical reasons, she was transferred from [facility] for evaluation of hypoxia. She has a history of COPD, morbid obesity, congestive heart failure, diabetes mellitus, deep vein thrombosis, hypertension and atrial fibrillation. She had recently seen her primary care physician at [facility] for right leg wound. She has had a right leg wound for several months. Dr. Watson has treated this in the past. The patient was admitted due to her hypoxia. PAST MEDICAL HISTORY: Morbid obesity, diabetes mellitus type 2, history of deep vein thrombosis, history of chronic wounds right lower extremity. ALLERGIES: PENICILLIN. MEDICATIONS: Include iron, NovoLog insulin, Coreg, Celexa, clonazepam, Keppra, Lasix, MS Contin for chronic pain, Ventolin, Spiriva, Lipitor, doxycycline, Ultram, Xarelto, MiraLax, Spiriva, Neurontin, Synthroid, melatonin and Protonix. Currently, she is on azithromycin and ceftriaxone. PHYSICAL EXAMINATION: GENERAL: Shows chronically ill-appearing, morbidly obese woman breathing with nasal oxygen. She is alert, pleasant, conversant, is good historian. HEENT: Mucous membranes are moist. LUNGS: Respirations are unlabored. ABDOMEN: Morbidly obese. EXTREMITIES: Examination of lower extremities shows lymphedema of both lower extremities. Examination of the right leg shows an area of chronic reddish pink discoloration of the anterior right medial lower leg measuring approximately 20 cm x 15 cm. There are no open wounds, but crusted dry dark eschar centrally. Calf is mildly tender. No overt cellulitis. IMPRESSION: 1. Morbid obesity. 2. Chronic lymphedema of lower extremities. [address] [address] CONSULTATION Name: MO GUNN Room #: 207-P [facility] IN M.R.#: [id number] Admission: 07/17/18 ������������������ Attend Phys: Pedro Jacob Discharge: ������������������ Date of : 60 Report #: [id number] 3. History of deep vein thrombosis. 4. Lymphedema, bilateral lower extremities. 5. Venous stasis with ulcer and inflammation. 6. Mild cellulitis of right lower leg. PLAN: We will order topical morphine, Silvadene cream, Xeroform and a Kerlix wrap. Order ultrasound of bilateral lower extremities to rule out recurrent deep vein thrombosis. Let Dr. Antony Watson know that she is back. Wounds of the right lower extremity do not appear open at this time. Continue antibiotics due to mild cellulitis and tenderness. ��������������������������������������������� <ELECTRONICALLY SIGNED> ���������������������������������������� By: Syed Turk MD ��������������������������������������������� 07/19/18 1214 1200 0203 Syed Turk MD /nt
[2018-07-19 12:50] VITALS: BP 104/48
--- NOTE | 2018-07-19 13:03 | NUR ---
SPOKE WITH PATIENT AND FAMILY AT THE BEDSIDE. PATIENT REQUESTING APPOINTMENT WITH [facility] TO DISCUSS DPOA PAPERWORK. APPOINT MENT TO BE MADE WITH REWEAVER 2 PM 07/20/18.
[2018-07-19 16:00] VITALS: BP 110/51
--- NOTE | 2018-07-19 19:36 | NUR ---
PATIENT ALERT AND ORIENTED X4, PAIN MILDLY CONTROLLED WITH MEDICATION. NORMAL SINUS RHYTHM ON RINKMAN. ON 6L NASAL CANNULA. TOLERATING DIET, BLOOD SUGAR MONITORED. MCGUIRE PATENT AND ADEQUATE OUTPUT. BILATERAL LOWER LEGS LYMPHEDEMA, OPEN TO AIR. PATIENT UPDATED ON THE PLAN OF CARE, NO SIGNS OF ACUTE DISTRESS NOTED AT THIS TIME. WILL CONTINUE TO MONITOR.
[2018-07-19 20:24] VITALS: BP 117/50
--- NOTE | 2018-07-20 02:57 | NUR ---
ASSUMED CARE 1899. VSS. ASSESSMENT CHARTED. PT C/O LE AND LOWER BACK PAIN, PARTIALLY CONTROLED WITH SCHEDULED AND PRN PAIN MEDS PER EMAR. NON-AMBULATORY Q2 TURNS. 2L NC, PT DENIES SOA. MCGUIRE IN PLACE GOOD OUTPUT. WILL CONTINUE TO MONITOR AND WITH POC.
[2018-07-20 05:43] VITALS: BP 127/43
[2018-07-20 07:11] VITALS: BP 126/50
[2018-07-20 11:39] VITALS: BP 102/52
[2018-07-20 15:18] VITALS: BP 109/54
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
--- NOTE | 2018-07-20 17:00 | NUR ---
FAXED REFERRAL TO [facility] SPOKE WITH NUNU IN ADM SHE RECEIVED REFERRAL AND WILL REVIEW. DCP TO FOLLOW.
--- NOTE | 2018-07-20 18:53 | NUR ---
PATIENT HAS RESTED IN BED THROUGH THE DAY. DID REQUEST PAIN MEDICATION ONCE AND IT WAS EFFECTIVE. AUNT HERE TO SIGN DPOA PAPER. NO FUTHRER COMPLAINTS. CONT WITH PLAN OF CARE.
[2018-07-20 20:01] VITALS: BP 114/55
--- NOTE | 2018-07-21 03:11 | NUR ---
ASSUMED CARE 1900. VSS. ASSESSMENT CHARTED. PT BACK AND LE PAIN CONTROLED WITH PRN AND SCHEDULED PAIN MEDS. DENIES ANY OTHER CONCERNS. Q2 TURNS. SEE CM NOTES AWAITING APPROVAL FOR FACILITY. PLAN FOR LABS THIS AM. WILL CONTINUE TO MONITOR AND WITH POC.
[2018-07-21 04:05] VITALS: BP 140/53
[2018-07-21 04:38] LABS: HEMATOCRIT 45.3 % (37.0-47.0); HEMOGLOBIN 15.1 gm/dL (12.0-15.0); MCH 31.7 pg (26.0-34.0); MCHC 33.2 g/dL (28.0-37.0); MCV 95.3 fL (80.0-100.0); RBC 4.75 mil/uL (4.20-5.00); RDW 15.7 % (10.5-14.5); WBC 5.6 thou/uL (4.0-11.0)
[2018-07-21 04:40] LABS: CREATININE 0.9 mg/dL (0.6-1.0); POTASSIUM 3.9 mmol/L (3.5-5.1)
[2018-07-21 07:35] VITALS: BP 130/51
[2018-07-21 11:28] VITALS: BP 119/63
[2018-07-21 14:10] VITALS: BP 126/64
--- NOTE | 2018-07-21 16:13 | NUR ---
[facility] ARRANGED TRANSPORT THROUGH [facility] FOR 1200 TOMORROW 07/22. NOTIFIED HARSHAL AT FACILITY OF TRANSPORT TIME. TRIP #[id number]. DCP TO FOLLOW.
--- NOTE | 2018-07-21 16:30 | NUR ---
PT CARE ASSUMED APPROX 0700. PT ALERT AND ORIENTED X4. DENIES SOA. REPORTS LOWER BACK AND BILATERAL LEG PAIN 12/02. OXY USED TO MANAGE PAIN. VSS. BS ELEVATED THIS SHIFT. IV STEROIDS REMAIN TO POC. IV ABT ALSO REMAIN TO POC. TURNING PT Q2HRS AND PRN. MCGUIRE PATENT. NO DISTRESS NOTED.
--- NOTE | 2018-07-21 17:36 | NUR ---
patient to dc to [facility] on 07/22/18 1200 via stretcher van for 1200. Patient and aunt notified and in agreement with plan.
[2018-07-21 20:57] VITALS: BP 120/60
--- NOTE | 2018-07-22 02:24 | NUR ---
ASSUMED CARE 1899. VSS. ASSESSMENT CHARTEED. BILAT LEG PAIN CONTROLED WITH PRN AND SCHEDULED MEDS PER EMAR. Q2 TURNS. MAYNOR IN PLACE PATENT. 2 L NC. PT STATES NO OTHER CONCERNS AND SLEEPING WELL ANTICIPATING D/C THIS AM. WILL CONTINUE TO MONITOR AND WITH POC.
[2018-07-22 03:34] VITALS: BP 115/60
[2018-07-22 04:02] LABS: CALCIUM 9.3 mg/dL (8.5-10.1); POTASSIUM 3.5 mmol/L (3.5-5.1)
[2018-07-22 04:15] LABS: HEMATOCRIT 46.8 % (37.0-47.0); HEMOGLOBIN 15.2 gm/dL (12.0-15.0); MCH 31.2 pg (26.0-34.0); MCHC 32.5 g/dL (28.0-37.0); RBC 4.88 mil/uL (4.20-5.00); RDW 15.3 % (10.5-14.5); WBC 7.7 thou/uL (4.0-11.0)
[2018-07-22 09:31] VITALS: BP 110/58
[2018-07-22] MEDS ORDERED: OXYCODONE HCL10 MG PO (09:42)
[2018-07-22] MEDS ORDERED: MS CONTIN 60 MG60 M1 PO (09:42)
[2018-07-22] MEDS ORDERED: PREDNISONE 10 M10 MG PO (09:42)
[2018-07-22] MEDS ORDERED: CLONAZEPAM 1 MG1 M1 PO (09:42)
[2018-07-22] MEDS ORDERED: CEFUROXIME500 MG PO (09:43)
--- NOTE | 2018-07-22 10:55 | NUR ---
PT. DISCHARGING TODAY TO [facility] FAXED DC ORDERS/SUMMARY TO FACILITY AND SPOKE WITH ENEDELIA AND THEY RECEIVED DC ORDERS TRANSPORTATION VIA [facility]OUGH [facility] TRIP #[phone] FOR [id number] TODAY. FAMILIY NOTIFIED BY KORIN. UNIT NOTIFIED AND CHART COPY PER US RN TO CALL REPORT TO [phone].
[2018-07-22 11:20] VITALS: BP 114/64
--- NOTE | 2018-07-22 13:18 | NUR ---
ASSESSMENTS DOCUMENTED. PT A/0X4. SINUS RHYHTM ON THE MONITOR. ORDERS FOR DISCHARGE. WOUND PICTURE TAKEN OF RIGHT LOWER EXTREMITY AND PLACED IN CHART. REPORT CALLED TO FACILITY. IV TAKEN OUT. TELE MONTIOR OFF. CHART COPY SENT TO FACILITY. CASE MANAGEMENT UPDATED AUNT (SETH). ALL BELONGINGS SENT WITH PATIENT.
== END 2018-07-22 13:48 | DRG 871 ==
LOC: 2N 18:55
PROVIDERS: Hospitalist; Nurse Practitioner Family; ADMIT Internal Medicine
DX: A41.9 Sepsis, unspecified organism (principal); J96.21 Acute and chronic respiratory failure with hypoxia; J96.22 Acute and chronic respiratory failure with hypercapnia; I50.33 Acute on chronic diastolic (congestive) heart failure; L03.115 Cellulitis of right lower limb; Z68.45 Body mass index [BMI] 70 or greater, adult; J44.1 Chronic obstructive pulmonary disease with (acute) exacerbation; N39.0 Urinary tract infection, site not specified; E66.2 Morbid (severe) obesity with alveolar hypoventilation; L97.819 Non-pressure chronic ulcer of other part of right lower leg with unspecified severity; E03.9 Hypothyroidism, unspecified; E11.65 Type 2 diabetes mellitus with hyperglycemia; I11.0 Hypertensive heart disease with heart failure; E87.6 Hypokalemia; E87.8 Other disorders of electrolyte and fluid balance, not elsewhere classified; G40.409 Other generalized epilepsy and epileptic syndromes, not intractable, without status epilepticus; G89.4 Chronic pain syndrome; L30.9 Dermatitis, unspecified; M19.90 Unspecified osteoarthritis, unspecified site; F41.9 Anxiety disorder, unspecified; F32.9 Major depressive disorder, single episode, unspecified; I48.2 Chronic atrial fibrillation; G25.81 Restless legs syndrome; F17.210 Nicotine dependence, cigarettes, uncomplicated; E11.9 Type 2 diabetes mellitus without complications; I87.8 Other specified disorders of veins; I89.0 Lymphedema, not elsewhere classified; Z86.718 Personal history of other venous thrombosis and embolism; Z79.4 Long term (current) use of insulin; Z79.899 Other long term (current) drug therapy; Z88.0 Allergy status to penicillin; Z71.6 Tobacco abuse counseling
CPT/HCPCS: 10081